=== PATIENT | male | born 1945 | race Two or more races ===

== ENCOUNTER 2022-02-05 13:12 | Inpatient (IN) | payer MEDICARE, BC ==
[~2022-02-05] VITALS: Ht 177.8 cm; Wt 74.4 kg
--- NOTE | 2022-02-05 14:02 | NUR ---
"Fell couple nights back and scraped by back-dont remember what happened last night i was in pain so took meds and I fell again". The patient rates pain 10/10. In room air and denies SOB. Respiration regular and unlabored. The patient is attached to the monitor. Warm blanket provided for comfort. Will continue to monitor the patient.
--- NOTE | 2022-02-05 14:30 | NUR ---
IV LINE IS ESTABLIHSHED, BLOOD SPECIMEN COLLECTED AND SENT TO THE LAB. THE LINE IS SALINE LOCKED.
--- NOTE | 2022-02-05 14:30 | NUR ---
COVID ANTIGEN SWAB DONE AND SENT TO THE LAB
--- NOTE | 2022-02-05 14:34 | NUR ---
THE PATIENT IS TAKEN TO CT [facility]IA [facility]
--- NOTE | 2022-02-05 14:45 | NUR ---
THE PATIENT IS BACK FROM [facility]
[2022-02-05] MEDS ORDERED: ZOLP5TAB2 PO (14:54)
[2022-02-05] MEDS ORDERED: SIMV-49 PO (14:54)
[2022-02-05] MEDS ORDERED: METO25TA6 PO (14:54)
[2022-02-05 15:01] LABS: BASOPHILS % (AUTO) 0.3 % (0.0-2.0); HEMATOCRIT 42 % (39-51); LYMPHOCYTES # (AUTO) 0.8 K/uL (0.8-4.8); LYMPHOCYTES % (AUTO) 10.4 % (20.0-44.0); MEAN CORPUSCULAR HGB CONC 33 g/dl (31.0-36.0); MEAN CORPUSCULAR VOLUME 93 fL (80-96); MONOCYTES # (AUTO) 0.7 K/uL (0.1-1.30); MONOCYTES % (AUTO) 9.6 % (2.0-12.0); NEUTROPHILS # (AUTO) 5.9 K/uL (1.8-8.9); NEUTROPHILS % (AUTO) 78.7 % (43.0-81.0); PLATELET COUNT (AUTO) 157 K/uL (150-450); RED BLOOD CELL COUNT(AUTO) 4.53 MIL/uL (4.5-6.0); WHITE BLOOD COUNT (AUTO) 7.5 K/uL (4.3-11.0)
--- NOTE | 2022-02-05 15:02 | NUR ---
URINE COLLECTED AND SENT TO THE LAB
[2022-02-05 15:03] LABS: CALCIUM, SERUM 8.4 mg/dL (8.5-10.1); CARBON DIOXIDE 30 mmol/L (21-32); CHLORIDE 105 mmol/L (98-107); CREATININE 2.1 mg/dL (0.6-1.3); GLUCOSE 93 mg/dL (74-106); POTASSIUM 4.6 mmol/L (3.5-5.1); SODIUM SERUM 142 mmol/L (136-145); UREA NITROGEN, BLOOD 30 mg/dL (7-18)
[2022-02-05 15:09] LABS: ALANINE AMINOTRANSFERASE 14 U/L (12-78); ALBUMIN 3.4 g/dL (3.4-5.0); ALKALINE PHOSPHATASE 58 U/L (46-116); ASPARTATE AMINOTRANSFERASE 22 U/L (15-37); BILIRUBIN,DIRECT 0.2 mg/dL (0.0-0.2); BILIRUBIN,TOTAL 0.9 mg/dL (0.2-1.0)
--- NOTE | 2022-02-05 17:02 | NUR ---
BED 312-1 ADMITTING NOTIFIED.
--- NOTE | 2022-02-05 17:05 | NUR ---
CALLED NURSING SUP REGARDING PT BED
--- NOTE | 2022-02-05 17:09 | NUR ---
REPORT GIVEN TO NURSE MORA FOR RAHUL
--- NOTE | 2022-02-05 17:42 | NUR ---
THE PATIENT IS TRANSFERED TO ROOM 312-1 IN STABLE CONDITION AND PER POLICY
--- NOTE | 2022-02-05 17:45 | NUR ---
RN NOTE- PT ADMITTING TO TELE A-FIB AND RT RIB FX S/P GLF. RECOVERY AGENT MORFIN PLACING ORDERS SHORLY. PT COMFORTABLE IN BED. AOX4.
--- NOTE | 2022-02-05 17:50 | NUR ---
FULFILLMENT REPRESENTATIVE NOTE- 76 Y/O MALE ADMITTING FROM ED FOR AFIB AFTER INITIALLY COMING TO HOSPITAL S/P GLF X 2 EVENTS. PT STATES "I THINK I JUST FELL. I DON'T RECALL BEING DIZZY." EVALUATION SHOWS RT RIB FX, BRUISING TO RT POSTERIOR FLANK, ABRASIONS TO BOTH POSTERIOR WRISTS. PT AMBULATORY THOUGH PT EVAL ORDERED REGARDLESS. AOX4. VS- BP- 126/69, HR TELE AFIB AT 84/M, RR- 18, T- 98.0. O2 SATS AT 99% RA. PT HAS FLANK AND RIB PAIN. POULTRY OFFAL WORKER NAVJOT PLACING ORDERS. CT ABD / PELVIS UNREMARKABLE. WILL RELAY TO NOC SHIFT FOR CONTINUITY OF CARE. SIDE RAILS UP, BED LOCKED, CALL LIGHT IN REACH.
[2022-02-05 18:44] LABS: BILIRUBIN,URINE NEGATIVE (NEGATIVE); COLOR,URINE YELLOW (YELLOW); LEUKOCYTE ESTERASE ,URINE NEGATIVE (NEGATIVE); NITRITE, URINE NEGATIVE (NEGATIVE); PROTEIN,URINE NEGATIVE (NEGATIVE); UGLUCOSE NEGATIVE (NEGATIVE); UROBILINOGEN,URINE 0.2 EU/dL (0.2)
[2022-02-05] MEDS ORDERED: MAG HYDROX/AL HYDROX/SIMETH 30 ML UDC PO PRN (19:00)
[2022-02-05] MEDS ORDERED: ZOLPIDEM TARTRATE 5 MG TABLET PO PRN (19:00)
[2022-02-05] MEDS ORDERED: MAGNESIUM HYDROXIDE 30 ML UDC PO PRN (19:00)
[2022-02-05] MEDS ORDERED: ONDANSETRON HCL/PF 4 MG/2 ML VIAL IVP PRN (19:00)
[2022-02-05] MEDS ORDERED: HYDROCODONE/APAP 5/325MG TABLET PO PRN (19:00)
[2022-02-05] MEDS ORDERED: ACETAMINOPHEN 325 MG TABLET PO PRN (19:00)
[2022-02-05] MEDS ORDERED: IV NS 0.9% 1,000 ML IV PRN (19:00)
[2022-02-05] MEDS: ENOXAPARIN SODIUM 30 MG/0.3 ML DISP.SYRIN SQ SCH (19:07)
[2022-02-05] MEDS: HYDROCODONE/APAP 10/325MG TABLET PO PRN (19:07)
--- NOTE | 2022-02-05 19:10 | NUR ---
RN NOTE PT AWAKE IN BED, A/OX4, ABLE TO VERBALIZE ALL NEEDS. RESPIRATIONS EVEN/UNLABORED. O2 SAT 96% ON ROOM AIR. PT DENIES PAIN AT THIS TIME. IV ACCESS TO R-AC #20G INTACT/PATENT/FLUSHES WELL. PT ABLE TO AMBULATE TO BR WITH STEADY GAIT. SAFETY INSTRUCTIONS REINFORCED. PT VERBALIZED UNDERSTANDING. NO ACUTE DISTRESS NOTED. SAFETY MEASURES IN PLACE, BED IN LOWEST LOCKED POSITION, S/R UPX2, CALL LIGHT WITHIN REACH, BED ALARM ON. WILL CONT TO MONITOR.
[2022-02-05 19:44] LABS: BACTERIA,URINE Few /HPF (None Seen); HYALINE CASTS, URINE Few /LPF (None Seen); SQUAMOUS EPITHELIAL CELL,UR Few /HPF (None Seen)
[2022-02-05 20:00] VITALS: BP 129/81
[2022-02-05] MEDS ORDERED: SIMVASTATIN 20 MG TABLET PO SCH (22:00)
[2022-02-06] VITALS: BP 132/79
[2022-02-06 04:00] VITALS: BP 146/85
[2022-02-06 06:42] LABS: BASOPHILS % (AUTO) 0.4 % (0.0-2.0); EOSINOPHILS % (AUTO) 3.2 % (0.0-6.0); HEMATOCRIT 42 % (39-51); HEMOGLOBIN 13.9 g/dL (13.5-17.5); MEAN CORPUSCULAR HGB CONC 33 g/dl (31.0-36.0); MEAN CORPUSCULAR VOLUME 94 fL (80-96); MONOCYTES # (AUTO) 0.7 K/uL (0.1-1.30); MONOCYTES % (AUTO) 11.1 % (2.0-12.0); NEUTROPHILS # (AUTO) 4.5 K/uL (1.8-8.9); NEUTROPHILS % (AUTO) 70.3 % (43.0-81.0); PLATELET COUNT (AUTO) 146 K/uL (150-450); RED BLOOD CELL COUNT(AUTO) 4.45 MIL/uL (4.5-6.0); WHITE BLOOD COUNT (AUTO) 6.4 K/uL (4.3-11.0)
[2022-02-06] MEDS: HYDROCODONE/APAP 10/325MG TABLET PO PRN (06:52)
--- NOTE | 2022-02-06 07:20 | NUR ---
DIRECTOR OF MANAGED CARE OPENING NOTE PATIENT IN BED ALERT AND ORIENTED X 4. WITH EQUAL AND UNLABORED BREATHING ON ROOM AIR WITH NO SIGNS AND SYMPTOMS OF DISTRESS. PATIENT VERBALIZED DISCOMFORT WHEN AMBULATING ONLY. ON NATURAL FABRICATOR WITH READING OF CONTROLLED AFIB. WITH IV ACCESS ON RIGHT AC WITH IVF OF NS RUNNING AT 75ML/HR. ALL SAFETY MEASURES MAINTAINED: HEAD OF BED ELEVATED, CALL LIGHT AND TABLE WITHIN EASY REACH , SIDE-RAILS UP X2 AND BED IN LOWEST LOCKED POSITION. WILL CONTINUE TO MONITOR PATIENT.
[2022-02-06] MEDS ORDERED: PANTOPRAZOLE 40 MG TABLET.DR PO SCH (07:30)
[2022-02-06 08:00] VITALS: BP 120/77
[2022-02-06 08:10] LABS: CALCIUM, SERUM 8.1 mg/dL (8.5-10.1); CARBON DIOXIDE 22 mmol/L (21-32); CHLORIDE 106 mmol/L (98-107); CREATININE 1.8 mg/dL (0.6-1.3); GLUCOSE 104 mg/dL (74-106); MAGNESIUM 2.6 mg/dL (1.8-2.4); PHOSPHORUS 3.7 mg/dL (2.5-4.9); POTASSIUM 4.6 mmol/L (3.5-5.1); SODIUM SERUM 140 mmol/L (136-145); UREA NITROGEN, BLOOD 28 mg/dL (7-18)
[2022-02-06 08:29] LABS: BAND % (MANUAL) 2 % (0.0-5.0); EOSINOPHILS % (MANUAL) 4 % (0-4); LYMPHOCYTES % (MANUAL) 16 % (16-48); MONOCYTES % (MANUAL) 11 % (0-11.0); NEUTROPHILS % (MANUAL) 67 (42-76)
[2022-02-06 08:42] LABS: CHOLESTEROL 150 mg/dL (<200); HDL CHOLESTEROL 39 mg/dL (40-60); LDL 83 mg/dL (0-99); THYROID STIMULATING HORMONE 9.429 uIU/mL (0.358-3.74); TRIGLYCERIDES 192 mg/dL (30-150)
[2022-02-06] MEDS ORDERED: DOCUSATE SODIUM 100 MG CAPSULE PO SCH (09:00)
[2022-02-06] MEDS ORDERED: METOPROLOL TARTRATE 25 MG TABLET PO SCH ×2 (09:00→17:00)
[2022-02-06 09:05] VITALS: BP 120/77
[2022-02-06] MEDS: ENOXAPARIN SODIUM 30 MG/0.3 ML DISP.SYRIN SQ SCH (09:06)
--- NOTE | 2022-02-06 09:33 | NUR ---
BALLET TEACHER NOTE PATIENT SEEN BY HOSPITALIST, MARIANA CHACON
--- NOTE | 2022-02-06 12:41 | NUR ---
CURRENCY MACHINE OPERATOR NOTE PATIENT SEEN BY DR. CARSON AND CLEARED PATIENT CARDIO-BA. AWAITING HOSPITALIST ORDER/ PLAN.IN STABLE CONDITION.
--- NOTE | 2022-02-06 14:32 | NUR ---
TURPENTINE FARMER NOTE SEEN BY HOSPITALIST OSWALDO. PATIENT WITH ORDER FOR DISCHARGE. HEALTH TEACHING DONE REGARDING DISEASE PROCESS AND MEDICATIONS. VERBALIZED UNDERSTANDING AND APPRECIATION. IN STABLE CONDITION. AWAITING FAMILY TO PICK-UP PATIENT.
--- NOTE | 2022-02-06 15:05 | NUR ---
TOBACCO SWEEPER NOTE PATIENT DISCHARGED ORDERED. IV ACCESS REMOVED AND COVERED WITH DRY DRESSING, TOLERATED WELL. PATIENT SIGNED HEALTH TEACHINGS AND INVENTORY LIST AND ATTACHED TO CHART. PATIENT IN STABLE CONDITION. PATIENT PREFERRED TO WALK TO LOBBY, ACCOMPANIED BY AND THIS NURSE. IN STABLE CONDITION. ENDORSED ACCORDINGLY.
== END 2022-02-06 15:03 | disposition home or self-care (01) | DRG 308 ==
LOC: ER 13:24 → MED 17:23 → TELE 17:50
PROVIDERS: ADMIT Nurse Practitioner Acute Care; ATTEND Nurse Practitioner Acute Care
DX: I48.19 Other persistent atrial fibrillation (principal); N17.0 Acute kidney failure with tubular necrosis; S22.41XA Multiple fractures of ribs, right side, initial encounter for closed fracture; W01.0XXA Fall on same level from slipping, tripping and stumbling without subsequent striking against object, initial encounter; Y92.009 Unspecified place in unspecified non-institutional (private) residence as the place of occurrence of the external cause; Z87.891 Personal history of nicotine dependence; I49.9 Cardiac arrhythmia, unspecified; E86.0 Dehydration; K59.00 Constipation, unspecified; Z20.822 Contact with and (suspected) exposure to COVID-19; J98.4 Other disorders of lung
CPT/HCPCS: 36415; 70450-TC; 71045-TC; 71250-TC; 76770-TC; 80048-TC; 80061-TC; 80076-TC; 81001; 82962-TC; 83735-TC; 83880; 84100-TC; 84443-TC; 84484-TC; 85025-TC; 87081-TC; 93307-TC; 97116-TC; 97530-TC; C9803; G0378; J1650; J7030

== ENCOUNTER 2024-03-06 09:35 | Emergency (ER) | payer MEDICARE, BC ==
[~2024-03-06] VITALS: Ht 177.8 cm; Wt 73.5 kg
[~2024-03-06 09:35] MED LIST: METO25TA6 PO; SIMV-49 PO; ZOLP5TAB2 PO
[2024-03-06 09:46] VITALS: TEMP 97.9
[2024-03-06 10:22] LABS: APPEARANCE,URINE SLIGHTLY CLOUDY (CLEAR); BILIRUBIN,URINE 3+ (NEGATIVE); BLOOD, URINE 3+ Ery/uL (NEGATIVE); COLOR,URINE BROWN (YELLOW); KETONES,URINE 1+ mg/dL (NEGATIVE); LEUKOCYTE ESTERASE ,URINE 2+ (NEGATIVE); NITRITE, URINE POSITIVE (NEGATIVE); PH,URINE 6.5 (5.0-8.0); PROTEIN,URINE 3+ mg/dl (NEGATIVE); UGLUCOSE TRACE mg/dL (NEGATIVE)
[2024-03-06 10:29] LABS: ADD URINE CULTURE YES; BACTERIA,URINE 3+ /HPF (None Seen); RBC,URINE TOO NUMEROUS TO COUN /HPF (0-2)
[2024-03-06 10:30] LABS: SQUAMOUS EPITHELIAL CELL,UR 0-2 /HPF (None Seen); TRICHOMONAS,URINE None Seen /HPF (None Seen); URIC ACID CRYSTALS,URINE Few /HPF (None Seen); YEAST,URINE Few /HPF (None Seen)
[2024-03-06] MEDS ORDERED: CEFD300C3 PO (11:03)
[2024-03-06 11:04] VITALS: BP 111/71
[2024-03-06 11:15] VITALS: O2SAT 96
== END 2024-03-06 11:27 | disposition home or self-care (01) ==
LOC: ER 09:35
DX: N39.0 Urinary tract infection, site not specified (principal); R31.9 Hematuria, unspecified; I10 Essential (primary) hypertension; E78.5 Hyperlipidemia, unspecified; I48.91 Unspecified atrial fibrillation; Z88.0 Allergy status to penicillin; Z91.040 Latex allergy status
CPT/HCPCS: 81001; 87086-TC

== ENCOUNTER 2024-07-02 10:29 | Emergency (ER) | payer MEDICARE, BC ==
[~2024-07-02] VITALS: Ht 177.8 cm; Wt 74.8 kg
[~2024-07-02 10:29] MED LIST changes: +CEFD300C3 PO
[2024-07-02 12:14] LABS: APPEARANCE,URINE CLOUDY (CLEAR); BILIRUBIN,URINE 2+ (NEGATIVE); BLOOD, URINE 3+ Ery/uL (NEGATIVE); COLOR,URINE RED (YELLOW); KETONES,URINE TRACE mg/dL (NEGATIVE); LEUKOCYTE ESTERASE ,URINE TRACE (NEGATIVE); NITRITE, URINE POSITIVE (NEGATIVE); PH,URINE 5.5 (5.0-8.0); PROTEIN,URINE 3+ mg/dl (NEGATIVE); UGLUCOSE TRACE mg/dL (NEGATIVE)
[2024-07-02 12:19] LABS: RBC,URINE TOO NUMEROUS TO COUN /HPF (0-2)
[2024-07-02 12:22] LABS: ADD URINE CULTURE YES; SQUAMOUS EPITHELIAL CELL,UR None Seen /HPF (None Seen)
[2024-07-02 12:23] LABS: BACTERIA,URINE Moderate /HPF (None Seen)
[2024-07-02] MEDS ORDERED: CEFD300C3 PO (12:43)
[2024-07-02 12:57] VITALS: BP 115/75; TEMP 97.5; O2SAT 97
== END 2024-07-02 12:58 | disposition home or self-care (01) ==
LOC: ER 10:42
DX: N39.0 Urinary tract infection, site not specified (principal); E78.5 Hyperlipidemia, unspecified; I10 Essential (primary) hypertension; R31.9 Hematuria, unspecified; I48.91 Unspecified atrial fibrillation; N40.0 Benign prostatic hyperplasia without lower urinary tract symptoms; Z79.01 Long term (current) use of anticoagulants; Z87.440 Personal history of urinary (tract) infections; Z88.0 Allergy status to penicillin; Z88.8 Allergy status to other drugs, medicaments and biological substances; Z91.041 Radiographic dye allergy status
CPT/HCPCS: 81001; 87086-TC